=== PATIENT | male | born 1975 | race Caucasian/White ===

== ENCOUNTER 2023-12-11 21:34 | Emergency (ER) | payer OTHER ==
[~2023-12-11] VITALS: Ht 180.3 cm; Wt 74.0 kg
[2023-12-11] MEDS ORDERED: HYDROCODONE BIT/ACETAMINOPHEN 5/325 MG 1 TAB HOME.PACK PO PRN (23:45)
[2023-12-11] MEDS ORDERED: HYDROCODON-ACE1 EA10 PO (23:52)
[2023-12-12 00:28] VITALS: BP 113/87
== END 2023-12-12 00:28 | disposition home or self-care (01) ==
LOC: ED 21:34
DX: S62.324A Displaced fracture of shaft of fourth metacarpal bone, right hand, initial encounter for closed fracture (principal); X50.1XXA Overexertion from prolonged static or awkward postures, initial encounter; Z88.0 Allergy status to penicillin; Z88.1 Allergy status to other antibiotic agents
CPT/HCPCS: 29125; 73130; 99283-25; A9270